=== PATIENT | female | born 1990 | race Caucasian/White ===

== ENCOUNTER 2017-01-06 13:36 | Outpatient (CLI) | payer OTHER ==
--- NOTE | 2017-01-06 16:46 | Diagnostic Imaging Report ---
[facility] [id number] [facility].[address] [id number] Report Submission Date: Jan 06, 2017 3:27:30 PM CDT Patient Study Name: CY RAINEY Date: Jan 06, 2017 1:42:49 PM CDT Modality Type: CR Gender: F Description: UPPER EXTREMITY : 89 Institution: [facility] Physician: STEVIE PASCAL 3 views of the right hand History: PT STATES INJURY TODAY. PAIN ON ANTERIOR SIDE OF WRIST. HX OF FRACTURE IN GROWTH PLATE 14 YEARS AGO Findings: No comparison studies There is deformity of the distal right radial metadiaphyseal region No evidence of acute fracture or dislocation of the right wrist, there is mild soft tissue swelling at the right wrist Impression: No evidence of acute fracture or dislocation of the right wrist Soft tissue swelling Deformity of right distal radius seen, consistent with provided prior history of fracture Electronically signed on Jan 06, 2017 3:27:30 PM CDT by: Viviana PONCE
== END 2017-01-06 13:37 ==
LOC: RAD 13:36
PROVIDERS: ATTEND Physician Assistant
DX: M25.531 Pain in right wrist (principal); S69.91XA Unspecified injury of right wrist, hand and finger(s), initial encounter; X58.XXXA Exposure to other specified factors, initial encounter; Y93.9 Activity, unspecified; Y99.9 Unspecified external cause status
CPT/HCPCS: 73110

== ENCOUNTER 2019-08-21 14:32 | Outpatient (CLI) | payer SELFPAY ==
[2019-08-21 15:13] LABS: BASOPHILS % 0.6 % (0.0-1.5); NEUTROPHILS # 4.9 # k/uL (1.4-7.7)
[2019-08-21 15:22] LABS: eGFR (Non-African) > 60
== END 2019-08-21 14:45 ==
LOC: LAB 14:32
PROVIDERS: ATTEND Family Medicine
DX: R51 Headache (principal); R68.83 Chills (without fever)
CPT/HCPCS: 36415; 80053; 85025